=== PATIENT | male | born 1975 | race Two or more races ===

== ENCOUNTER 2025-01-15 17:03 | Emergency (ER) | payer OTHER ==
[~2025-01-15] VITALS: Ht 167.6 cm; Wt 81.6 kg
[2025-01-15] MEDS ORDERED: GLIMEPIRIDE4 MG PO (17:50)
[2025-01-15] MEDS ORDERED: CARVEDILOL ER40 MG (17:50)
[2025-01-15] MEDS ORDERED: LOSARTAN-HCTZ1 EAC2 (17:51)
[2025-01-15] MEDS ORDERED: ONDANSETRON HCL 2 MG/ML VIAL IV ONE (18:15)
[2025-01-15] MEDS ORDERED: 0.9 % SODIUM CHLORIDE 1,000 ML IV ONE (18:15)
[2025-01-15] MEDS ORDERED: FAMOTIDINE/PF 20 MG/2 ML VIAL IV ONE (18:15)
[2025-01-15] MEDS ORDERED: ONDANSETRON HCL 2 MG/ML VIAL ONE (18:28)
[2025-01-15] MEDS ORDERED: FAMOTIDINE/PF 20 MG/2 ML VIAL ONE (18:29)
[2025-01-15 18:58] LABS: BASO % 0.8 % (0.1-1.2); EOS # 1.62 (0.04-0.54); LYMPH # 3.73 (1.18-3.74); LYMPH % 37.8 % (19.3-53.1); MEAN PLATELET VOLUME 9.60 fl (9.4-12.4); MONO # 0.84 (0.24-0.82); MONO % 8.5 % (4.7-12.5); NEUT # 3.56 (1.56-6.13); NEUT % 36.2 % (34.0-71.1); RED CELL DISTRIBUTION WIDTH 11.6 % (11.6-14.4)
[2025-01-15 19:00] LABS: EOS % 16.4 % (0.7-7.0)
[2025-01-15 19:39] LABS: ALT/SGPT 49.0 U/L (12-78); AST/SGOT 27.0 U/L (15-37); BILIRUBIN TOTAL 0.45 mg/dL (0.3-1.2); BUN CREA RATIO 14.0 (7.0-25.0); CREATININE SERUM 0.97 mg/dL (0.70-1.30); GFR 82.26; GLOBULINA 3.7 G/DL (2.4-3.5); GLUCOSE FASTING 88.0 mg/dL (65-100); OSMOLALITY SERUM 281.0 MOSM/KG (275-295)
[2025-01-15 19:48] LABS: URINE APPEARANCE Clear; URINE BILIRRUBIN Negative (NEGATIVE); URINE BLOOD Negative; URINE COLOR Yellow; URINE GLUCOSE Negative (NEGATIVE); URINE KETONE Negative (NEGATIVE); URINE LEUKOCYTE Negative; URINE NITRATE Negative; URINE PROTEIN Negative (NEGATIVE); URINE UROBILINOGEN 0.2 E.U./dl
[2025-01-15 19:52] LABS: URINE RBC 14.0 uL (0.0-20.8)
[2025-01-15 20:02] LABS: URINE BACTERIA 3.4 uL (0.0-1933); URINE CAST 0.00 uL (0.0-1.40); URINE EPITHELIAL CELLS 0.4 uL (0.0-38.8); URINE WBC 1.5 uL (0.0-23.2)
[2025-01-15] MEDS ORDERED: LEVSIN/SL0.125 MG SL (22:59)
[2025-01-15] MEDS ORDERED: INTESTINEX680 M1 PO (22:59)
== END 2025-01-16 00:23 ==
LOC: ER 17:04
PROVIDERS: General Practice
DX: R10.9 Unspecified abdominal pain (principal); R11.0 Nausea; I10 Essential (primary) hypertension; E11.9 Type 2 diabetes mellitus without complications
CPT/HCPCS: 36415; 74177; Q9965